=== PATIENT | male | born 1935 | race Caucasian/White ===

== ENCOUNTER 2016-10-16 15:46 | Emergency (ER) | payer MEDICARE ==
[~2016-10-16] VITALS: Ht 170.2 cm; Wt 95.0 kg
[~2016-10-16 15:46] MED LIST: ALLBC PO; AMLO5TAB96 PO; ASPI81TA11 PO; ATEN1TAB73 PO; BENI20TA26 PO; BISA10SU8 PR; EZET10 PO; FOLI400T30 PO; LIPI40TA PO; NEXI40CA PO; OMEGCAP21 PO; PERC5TAB12 PO; SUPETAB30 PO; WARF-20 PO; Z.0.CPM; Z.0.WALKERFRONT
[2016-10-16 15:49] VITALS: BP 113/80; PULSE 45; RESP 17; TEMP 97.8; O2SAT 96
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
[2016-10-16] MEDS ORDERED: TETANUS/DIPHTHERIA TOXOID ADULT 0.5 ML VIAL IM ONE (16:15)
== END 2016-10-16 16:39 | disposition home or self-care (01) ==
LOC: NETRI 15:46 → EDTENT 16:39
DX: S80.811A Abrasion, right lower leg, initial encounter (principal); R00.1 Bradycardia, unspecified; E78.00 Pure hypercholesterolemia, unspecified; I10 Essential (primary) hypertension; K21.9 Gastro-esophageal reflux disease without esophagitis; W45.8XXA Other foreign body or object entering through skin, initial encounter; Z86.73 Personal history of transient ischemic attack (TIA), and cerebral infarction without residual deficits; Z23 Encounter for immunization; Z79.01 Long term (current) use of anticoagulants
CPT/HCPCS: 90471; 90714

== ENCOUNTER 2017-04-30 14:27 | Emergency (ER) | payer OTHER, MEDICARE ==
[2017-04-30 14:55] VITALS: BP 186/84; PULSE 59; RESP 18; TEMP 97.8; O2SAT 97
--- NOTE | 2017-04-30 15:45 | RADRPT ---
EXAM DATE/TIME: 04/30/2017 15:24 [facility] COMPARISON: No previous studies available for comparison. INDICATIONS : Right shoulder pain after fall. MEDICAL HISTORY : None. SURGICAL HISTORY : None. ENCOUNTER: Initial ACUITY: 1 day PAIN SCORE: 10/10 LOCATION: Right shoulder. FINDINGS: Multiple view examination of the right shoulder demonstrates no evidence of fracture or dislocation. The glenohumeral and acromioclavicular joints are maintained. There are mild degenerative changes in the acromioclavicular joint with spurring off the inferior acromial process. There is normal range o f motion between internal and external rotation. Bony mineralization is normal. CONCLUSION: 1. No acute fracture or malalignment. 2. Mild degenerative change of the acromioclavicular joint with inferior spurring off the acromion. Hipolito Ron MD on April 30, 2017 at 15:41 Board Certified Radiologist. This report was verified electronically.
--- NOTE | 2017-04-30 15:52 | RADRPT ---
EXAM DATE/TIME: 04/30/2017 15:29 [facility] COMPARISON: No previous studies available for comparison. INDICATIONS : Left knee pain after fall. MEDICAL HISTORY : None. SURGICAL HISTORY : Left knee meniscus repair, fluid drained from knee 1 week ago. ENCOUNTER: Initial ACUITY: 1 day PAIN SCORE: 10/10 LOCATION: Left anterior knee. FINDINGS: A standard 4 view examination of the left knee was obtained and demonstrates 3 compartment osteoarthr itic change with joint space loss, sclerosis and mild spurring. There is diffuse osteopenia with no a cute fracture or malalignment. There is no joint body or definite effusion. Vascular calcifications a re present. The soft tissues appear unremarkable. CONCLUSION: Mild to moderate 3 compartment osteoarthritic change. There is no acute fracture or malalignment. Hipoilto Ron MD on April 30, 2017 at 15:46 Board Certified Radiologist. This report was verified electronically.
[2017-04-30] MEDS ORDERED: ATOR80TA45 PO (16:05)
[2017-04-30] MEDS ORDERED: NEXI40CA PO (16:05)
[2017-04-30] MEDS ORDERED: WARF-20 PO (16:05)
[2017-04-30] MEDS ORDERED: ASPI81TA81 PO (16:05)
[2017-04-30] MEDS ORDERED: WARF-60 PO (16:05)
[2017-04-30] MEDS ORDERED: AMLO5TAB2 PO (16:05)
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
[2017-04-30] MEDS ORDERED: ROBA500T PO (16:08)
== END 2017-04-30 16:35 | disposition home or self-care (01) ==
LOC: NED 14:27 → NEPA 16:35
DX: S80.02XA Contusion of left knee, initial encounter (principal); S40.011A Contusion of right shoulder, initial encounter; S46.001A Unspecified injury of muscle(s) and tendon(s) of the rotator cuff of right shoulder, initial encounter; I10 Essential (primary) hypertension; E78.00 Pure hypercholesterolemia, unspecified; M81.0 Age-related osteoporosis without current pathological fracture; W01.0XXA Fall on same level from slipping, tripping and stumbling without subsequent striking against object, initial encounter; Z85.828 Personal history of other malignant neoplasm of skin; Z86.73 Personal history of transient ischemic attack (TIA), and cerebral infarction without residual deficits; Z95.5 Presence of coronary angioplasty implant and graft; Z88.5 Allergy status to narcotic agent; Z79.01 Long term (current) use of anticoagulants; Z79.899 Other long term (current) drug therapy
CPT/HCPCS: 29240; 73030; 73564; 99284